=== PATIENT | female | born 1965 | race Caucasian/White ===

== ENCOUNTER 2017-05-25 15:04 | Emergency (ER) | payer MEDICARE, MEDICAID ==
[~2017-05-25] VITALS: Ht 162.6 cm; Wt 67.6 kg
[~2017-05-25 15:04] MED LIST: ATEN-60 PO; EST0625T PO; LITH300T5 PO; LURA40TA PO; PAR20T PO
[2017-05-25 17:06] LABS: Basophils # (auto) 0 uL; Basophils % (auto) 0.7 % (0.0-2.0); Eosinophils # (auto) 0.1 uL; Eosinophils % (auto) 2.9 % (0.0-7.0); Hematocrit 34.6 % (36.0-46.0); Lymphocytes # (auto) 2.1 uL; Lymphocytes % (auto) 43.1 % (10.0-50.0); Mean Corpuscular Hemoglobin 31.3 pg (28.0-32.0); Mean Corpuscular Hgb Conc. 34.6 g/dL (32.0-36.0); Mean Corpuscular Volume 90.4 fL (80.0-100.0); Mean Platelet Volume 7.2 fL (6.9-10.8); Monocytes # (auto) 0.4 uL; Monocytes % (auto) 8.5 % (0.0-12.0); Neutrophils # (auto) 2.2 uL; Neutrophils % (auto) 44.8 % (37.0-80.0); Nucleated Red Blood Cells % 0.1 %; Platelet Count (auto) 347 10^3/uL (140-450); Red Cell Distribution Width 12.6 % (11.8-14.3)
[2017-05-25 17:26] LABS: Albumin 3.5 g/dL (3.4-5.0); Bilirubin, Total 0.2 mg/dL (0.2-1.0); Calcium 8.4 mg/dL (8.5-10.1); Potassium 4.3 mmol/L (3.5-5.1); Total Protein 7.1 g/dL (6.4-8.2)
[2017-05-26] MEDS ORDERED: ONDANSETRON HCL 4 MG/2 ML VIAL ONE (02:29)
[2017-05-26] MEDS ORDERED: HYDROmorphone HCL 2 MG/ML VL ONE (02:29)
[2017-05-26] MEDS ORDERED: HYDROmorphone HCL 2 MG/ML VL IM ONE (02:30)
[2017-05-26] MEDS ORDERED: ONDANSETRON HCL 4 MG/2 ML VIAL IM ONE (02:30)
[2017-05-26 04:11] VITALS: BP 119/73
== END 2017-05-26 05:52 | disposition home or self-care (01) ==
LOC: ER 15:14
DX: R51 Headache (principal); F41.9 Anxiety disorder, unspecified; I10 Essential (primary) hypertension; F20.9 Schizophrenia, unspecified; Z90.710 Acquired absence of both cervix and uterus
CPT/HCPCS: 36415; 70450; 80053; 85025; 96372; 99285; J1170; J2405

== ENCOUNTER 2020-04-10 21:01 | Emergency (ER) | payer MEDICARE, MEDICAID, OTHER ==
[~2020-04-10] VITALS: Ht 162.6 cm; Wt 67.6 kg
[2020-04-10 21:32] VITALS: BP 157/78
[2020-04-10] MEDS ORDERED: FLUORESCEIN SOD 1 MG TEST STRIP LEFTEYE ONE (22:00)
[2020-04-10] MEDS ORDERED: TETRACAINE HCL 0.5% OPTH(EYE) SOLN 4ML LEFTEYE ONE (22:00)
== END 2020-04-10 22:39 | disposition home or self-care (01) ==
LOC: ER 21:11
DX: H20.9 Unspecified iridocyclitis (principal); Z88.8 Allergy status to other drugs, medicaments and biological substances

== ENCOUNTER 2021-08-20 06:52 | Emergency (ER) | payer MEDICARE, MEDICAID ==
[~2021-08-20] VITALS: Ht 160 cm; Wt 68.0 kg
[2021-08-20] MEDS ORDERED: ACE3T PO (07:19)
[2021-08-20 07:30] VITALS: BP 166/75
== END 2021-08-20 07:30 | disposition home or self-care (01) ==
LOC: ER 06:52
DX: M72.2 Plantar fascial fibromatosis (principal); I10 Essential (primary) hypertension; Z76.0 Encounter for issue of repeat prescription; Z90.710 Acquired absence of both cervix and uterus; Z79.899 Other long term (current) drug therapy; Z88.8 Allergy status to other drugs, medicaments and biological substances

== ENCOUNTER 2022-02-04 07:29 | Emergency (ER) | payer MEDICARE, MEDICAID ==
[~2022-02-04] VITALS: Ht 160 cm; Wt 67.6 kg
[~2022-02-04 07:29] MED LIST changes: +ACE3T PO
[2022-02-04 07:46] VITALS: BP 171/72
[2022-02-04] MEDS ORDERED: ACE3T PO (07:56)
== END 2022-02-04 08:12 | disposition home or self-care (01) ==
LOC: ER 07:29
DX: M72.2 Plantar fascial fibromatosis (principal); I10 Essential (primary) hypertension; Z79.899 Other long term (current) drug therapy; Z88.8 Allergy status to other drugs, medicaments and biological substances

== ENCOUNTER 2023-07-22 13:51 | Emergency (ER) | payer MEDICARE, MEDICAID ==
[~2023-07-22] VITALS: Ht 160 cm; Wt 59.5 kg
[~2023-07-22 13:51] MED LIST changes: -LURA40TA PO; +LURA40TA2 PO
[2023-07-22 16:47] VITALS: BP 158/81; PULSE 65; RESP 18; TEMP 98.6; O2SAT 99
[2023-07-22] MEDS ORDERED: CEPH500C PO ×2 (16:52)
[2023-07-23] MEDS ORDERED: CEPH500C PO (07:37)
== END 2023-07-22 16:56 | disposition home or self-care (01) ==
LOC: ER 13:51
DX: L08.89 Other specified local infections of the skin and subcutaneous tissue (principal); I10 Essential (primary) hypertension; F32.9 Major depressive disorder, single episode, unspecified; F20.9 Schizophrenia, unspecified; Z48.00 Encounter for change or removal of nonsurgical wound dressing; Z90.710 Acquired absence of both cervix and uterus; Z88.8 Allergy status to other drugs, medicaments and biological substances; Z79.899 Other long term (current) drug therapy